=== PATIENT | female | born 1980 | race Caucasian/White ===

== ENCOUNTER 2020-05-15 20:23 | Emergency (ER) | payer BC ==
[~2020-05-15] VITALS: Ht 167.6 cm; Wt 87.5 kg
--- NOTE | 2020-05-15 20:26 | NUR ---
Pt not in waiting room, states pt in restroom.
--- NOTE | 2020-05-15 20:35 | NUR ---
at bedside for assessment
[2020-05-15] MEDS ORDERED: HYDROCODONE/APAP 5-325MG TABLET PO ONE (20:45)
[2020-05-15] MEDS ORDERED: KETOROLAC TROMETHAMINE 30 MG INJ IM ONE (20:45)
[2020-05-15] MEDS ORDERED: HYDROCODONE/APAP 5-325MG TABLET ONE (20:57)
[2020-05-15] MEDS ORDERED: KETOROLAC TROMETHAMINE 30 MG INJ ONE (20:57)
--- NOTE | 2020-05-15 21:00 | NUR ---
Gave medications as ordered. Patient's not .
--- NOTE | 2020-05-15 21:11 | NUR ---
Patient discharged to home in stable condition. Written and verbal after care instructions given. Patient verbalizes understanding of instructions. Stressed follow up or return to ER for worsening s/s. Vital signs stable. Gave patient knee brace and crutches. Patient verbalized understanding of equipment. No signs acute of distress noted.
== END 2020-05-15 21:08 | disposition home or self-care (01) ==
LOC: ER 20:23
DX: S89.91XA Unspecified injury of right lower leg, initial encounter (principal); M25.561 Pain in right knee; Y93.23 Activity, snow (alpine) (downhill) skiing, snowboarding, sledding, tobogganing and snow tubing; Y92.89 Other specified places as the place of occurrence of the external cause; Y99.8 Other external cause status
CPT/HCPCS: 29515; 73564; 96372; 99283; J1885; A4663